=== PATIENT | female | born 1985 | race Caucasian/White ===

== ENCOUNTER 2016-07-29 00:38 | Emergency (ER) | payer OTHER ==
[~2016-07-29] VITALS: Ht 162.6 cm; Wt 63.5 kg
[2016-07-29 00:47] VITALS: Ht 162.6 cm; Wt 63.5 kg
[2016-07-29] MEDS ORDERED: KETOROLAC 60 MG INJ IM STA (01:24)
[2016-07-29] MEDS ORDERED: HYDROCODONE/APAP (10/325) TAB PO ONE (01:30)
[2016-07-29 01:40] LABS: URINE BLOOD (Dip) POC 2+ (NEGATIVE)
[2016-07-29] MEDS ORDERED: IBUP800T25 PO (02:22)
[2016-07-29] MEDS ORDERED: HYDR-902 PO (02:22)
[2016-07-29] MEDS ORDERED: CARI350T29 PO (02:22)
--- NOTE | 2016-07-29 02:28 | ERD ---
ER Documentation Chief Complaint Date/Time DATE: 07/29/16 TIME: 02:23 Chief Complaint lower back pain HPI Patient is a 31-year-old female who presents with right-sided lower lumbar pain that she has had for 1 day since this morning. Pain is 9 out of 10 throbbing nonradiating. Denies any fever, nausea, vomiting, diarrhea. Denies any dysuria or urinary frequency. She is unsure she has had hematuria because she states she is currently on her period. She took ibuprofen but it did not help. She denies any trauma. She is ambulatory. Denies any bowel or bladder incontinence. ROS All systems reviewed and are negative except as per history of present illness. Medications Home Meds Active Scripts Carisoprodol* (Carisoprodol*) 350 Mg Tablet, 350 MG PO Q8 Y for MUSCLE SPASMS, # 20 TAB Prov:LUANNE ROBERTSON PA-C 07/29/16 Hydrocodone/Acetaminophen ([place] 10-325 Tablet) 1 Each Tablet, 1 EACH PO Q6, # 20 TAB Prov:LUANNE ROBERTSON PA-C 07/29/16 Ibuprofen* (Motrin*) 800 Mg Tab, 800 MG PO Q6, #30 TAB Prov:LUANNE ROBERTSON PA-C 07/29/16 Allergies Allergies: Coded Allergies: No Known Allergy (Unverified , 07/29/16) PMhx/Soc Medical and Surgical Hx: pt denies Surgical Hx Hx Neurological Disorder: No Hx Respiratory Disorders: No Hx Cardiac Disorders: No Hx Psychiatric Problems: Yes (adhd, anxiety) Hx Miscellaneous Medical Probl: No Hx Alcohol Use: Yes Hx Substance Use: No Hx Tobacco Use: Yes Smoking Status: Current every day smoker FmHx Family History: No diabetes Physical Exam Vitals Vital Signs Date Time Temp Pulse Resp B/P Pulse Ox O2 Delivery O2 Flow Rate FiO2 07/29/16 00:47 97.3 97 18 133/93 97 Physical Exam General: well developed, well nourished, alert, nontoxic, no distress Head: normocephalic, atraumatic Neck: Supple, nontender, no lymphadenopathy, no midline tenderness Respiratory: Clear to auscaultation bilaterally, speaks in full sentences, no use of accesory muscles or labored breathing, no rales, ronchi, or wheezing Cardiovascular: RRR, No murmurs GI: soft, non tender, non distended, negative murphys sign, negative mcburneys point tenderness, no cva tenderness bilaterally, no rebound or guarding Back: no midline tenderness, no step offs or bony abnormalities, sensation to light touch in tact Results 24 hrs Laboratory Tests Test 07/29/16 01:40 Bedside Urine pH (LAB) 5.5 Bedside Urine Protein (LAB) Negative Bedside Urine Glucose (UA) Negative Bedside Urine Ketones (LAB) Negative Bedside Urine Blood 2+ Bedside Urine Nitrite (LAB) Negative Bedside Urine Leukocyte Esterase (L Negative Current Medications Medications (Trade) Dose Ordered Sig/Bang Route PRN Reason Start Time Stop Time Status Last Admin Dose Admin Ketorolac Tromethamine (Toradol) 60 mg ONCE STAT IM 07/29/16 01:24 07/29/16 01:25 DC 07/29/16 01:41 Acetaminophen/ Hydrocodone Bitart ([place] (10/325)) 1 tab ONCE ONCE PO 07/29/16 01:30 4 01:31 DC 07/29/16 01:41 Procedures/MDM Patient presents with lower back pain. Vital signs are normal. She has no urinary symptoms. She is not her urine is negative for infection. She has no CVA tenderness. Her GI examination is benign. This is most likely musculoskeletal and I have a low suspicion for kidney stones, cauda equina syndrome, cord compression, epidural abscess, or any other emergent cause of her symptoms. She was given Toradol and [place] with good improvement of her symptoms and she was discharged with S[place], [place], and ibuprofen. Recommended this patient follow up with her primary care doctor within 48 hours or return to the emergency room for any worsening of symptoms. However this time I do believe there is suitable for outpatient management. I answered all their questions and they agreed with the plan and were discharged home. Departure Diagnosis: Primary Impression: Back pain Condition: Stable Patient Instructions: Back Pain (Acute Or Chronic) Additional Instructions: Call your primary care doctor TOMORROW for an appointment during the next 1-2 days.See the doctor sooner or return here if your condition worsens before your appointment time. LUANNE ROBERTSON PA-C Jul 29, 2016 02:28
== END 2016-07-29 02:38 | disposition home or self-care (01) ==
LOC: FTE 00:38
DX: M54.5 Low back pain (principal); F17.210 Nicotine dependence, cigarettes, uncomplicated
CPT/HCPCS: 81003; 96372; 99284; J1885